=== PATIENT | female | born 1985 | race Caucasian/White ===

== ENCOUNTER 2020-06-16 07:31 | Emergency (ER) | payer BC ==
[~2020-06-16] VITALS: Ht 154.9 cm; Wt 79.8 kg
[2020-06-16 07:36] VITALS: BP 115/62
--- NOTE | 2020-06-16 07:41 | NUR ---
Patient ambulated to bed 11. RN evaluating the patient at bedside.
--- NOTE | 2020-06-16 07:50 | NUR ---
C/O 08/15 RUQ ABD PAIN ACCOMPANIED BY NAUSEA & DIARRHEA STARTING AROUND 12AM. PT STATES SHE HAS HAS A HX OF GALLSTONES AND THIS PAIN FEELS SIMILAR BUT WORSE. ABDOMEN IS FLAT, SOFT AND NON TENDER TO PALPATION. BOWEL SOUNDS PRESENT X4. PT DENIES FEVER, COUGH, SOB, CHEST PAIN. BED IN LOW POSITION, SIDE RAIL UP X1.
[2020-06-16] MEDS ORDERED: NACL 0.9% 500 ML IV ONE (08:06)
--- NOTE | 2020-06-16 08:07 | NUR ---
Dr. Saldana is evaluating the patient at bedside.
[2020-06-16] MEDS ORDERED: ONDANSETRON 4 MG/2 ML VIAL IVP ONE (08:10)
[2020-06-16] MEDS ORDERED: KETOROLAC 30 MG/ML VIAL IVP ONE (08:10)
[2020-06-16] MEDS ORDERED: PANTOPRAZOLE 40 MG INJ VIAL IVP ONE (08:15)
--- NOTE | 2020-06-16 08:15 | NUR ---
US tech at bedside for exam.
[2020-06-16 08:28] LABS: BASOPHILS % (AUTO) 0.1 % (0.0-2.0); HEMATOCRIT 37.4 % (36-48); HEMOGLOBIN 12.5 g/dL (12.0-16.0); LYMPHOCYTES % (AUTO) 7.6 % (20.5-51.1); MEAN CORPUSCULAR HEMOGLOBIN 32 pg (27-31); MEAN CORPUSCULAR HGB CONC 34 g/dL (33-37); MEAN CORPUSCULAR VOLUME 94.7 fL (80-94); MONOCYTES # (AUTO) 0.2 K/uL (0.8-1.0); MONOCYTES % (AUTO) 1.7 % (1.7-9.3); NEUTROPHILS # (AUTO) 11.6 K/uL (1.8-7.7); NEUTROPHILS % (AUTO) 90.6 % (42.2-75.2); PLATELET COUNT (AUTO) 414 K/uL (140-450); RED BLOOD CELL COUNT(AUTO) 3.95 MIL/uL (4.20-5.40); RED CELL DISTRIBUTION WIDTH 12.7 % (11.6-13.7); WHITE BLOOD COUNT (AUTO) 12.8 K/uL (4.8-10.8)
[2020-06-16 08:43] LABS: ALBUMIN 3.7 g/dL (3.4-5.0); ANION GAP 12.5 (8-16); CARBON DIOXIDE 24.5 mmol/L (21-32); CREATININE 0.8 mg/dL (0.6-1.3); TOTAL BILIRUBIN 0.3 mg/dL (0.0-1.0)
--- NOTE | 2020-06-16 08:45 | NUR ---
PT STATES PAIN IS RELIEVED 03/15
[2020-06-16 09:53] VITALS: BP 120/65
--- NOTE | 2020-06-16 09:54 | NUR ---
Patient discharged with v/s stable. Written and verbal after care instructions given and explained. Patient alert, oriented and verbalized understanding of instructions. Ambulatory with steady gait. All questions addressed prior to discharge. ID band removed. Patient advised to follow up with PMD. Rx of TRAMADOL, IBUPROFEN, AND ZOFRAN given. Patient educated on indication of medication including possible reaction and side effects. Opportunity to ask questions provided and answered.
== END 2020-06-16 09:54 | disposition home or self-care (01) ==
LOC: MED 07:31
DX: K80.20 Calculus of gallbladder without cholecystitis without obstruction (principal)
CPT/HCPCS: 36415; 76705; 80053; 83690; 85025; 96361; 96374; 96375; 99284; C9113; J1885; J2405; J7030; Q0092